=== PATIENT | male | born 1965 | race Caucasian/White ===

== ENCOUNTER 2017-06-25 18:25 | Emergency (ER) | payer OTHER ==
--- NOTE | 2017-06-25 19:45 | EDM.PDOC ---
ED HPI GENERAL MEDICAL PROBLEM - General Chief Complaint: Upper Extremity Injury/Pain Stated Complaint: HURT RIGHT WRIST Time Seen by Provider: 06/25/17 19:27 - History of Present Illness INITIAL COMMENTS - FREE TEXT/NARRATIVE: HISTORY AND PHYSICAL: History of present illness: The patient is a 51-year-old male who presents with right wrist and hand pain after he slipped and fell on the area about 10:00 this morning. He took 3 aspirin for the pain but the swelling and pain has been persistent and he is here for evaluation. When he fell he did not pass out or black out and he did not hit his head and has no head neck or back pain. Patient is right-hand dominant. Patient denies any other extremity complaints and has no proximal elbow humerus shoulder pain. He has no neurosensory changes in his hand but he says that there is discomfort when he moves the hand or the wrist. Review of systems: As per history of present illness and below otherwise all systems reviewed and negative. Past medical history: As per history of present illness and as reviewed below otherwise noncontributory. Surgical history: As per history of present illness and as reviewed below otherwise noncontributory. Social history: No reported history of drug or alcohol abuse. Family history: As per history of present illness and as reviewed below otherwise noncontributory. Physical exam: Gen.: Well-developed well-nourished man who is nontoxic and speaking clearly in the ED. Vital signs of the note by me HEENT: Atraumatic, normocephalic, negative for conjunctival pallor or scleral icterus, mucous membranes moist, throat clear, neck supple, nontender, trachea midline. Lungs: Clear to auscultation, breath sounds equal bilaterally, chest nontender. Heart: S1S2, regular rate and rhythm no overt murmurs Abdomen: Soft, nondistended, nontender. NABS Pelvis: Stable nontender. No lateral hip tenderness Genitourinary: Deferred. Rectal: Deferred. Extremities: Atraumatic with full range of motion of all extremities with the exception of the right wrist and hand where there is circumferential soft tissue swelling of the wrist and tenderness extending into the proximal Of the dorsal hand. The fingers are intact with full range of motion without defects or deficits and there is no proximal forearm elbow humerus or shoulder tenderness defects or deformities. Pulses are intact in the wrist and Refill is good. The legs are, negative for cords or calf pain. Neurovascular unremarkable. Neuro: Awake, alert, oriented. Cranial nerves II through XII unremarkable. Cerebellum unremarkable. Motor and sensory unremarkable throughout. Exam nonfocal. Back: There are no midline step-offs tenderness defects of the thoracic or lumbar spine and no posterior rib tenderness Diagnostics: X-ray right wrist and hand Therapeutics: Velcro wrist splint Impression: Right wrist injury/wrist sprain/hand contusion Definitive disposition and diagnosis as appropriate pending reevaluation and review of above. right wrist Pain Score (Numeric/FACES): 5 - Related Data Allergies Allergy/AdvReac Type Severity Reaction Status Date / Time No Known Allergies Allergy Verified 06/25/17 19:15 Home Meds: Home Meds . [No Known Home Meds] 06/25/17 [History] Past Medical History - Past Health History Medical/Surgical History: Denies Medical/Surgical History - Past Surgical History Musculoskeletal Surgical History: Reports: Other (See Below) Other Musculoskeletal Surgeries/Procedures:: left leg sx Social & Family History - Family History Family Medical History: Noncontributory - Tobacco Use Smoking Status *Q: Current Every Day Smoker Years of Tobacco use: 32 Packs/Tins Daily: 1 - Recreational Drug Use Recreational Drug Use: No Review of Systems - Review of Systems Review Of Systems: ROS reveals no pertinent complaints other than HPI. ED EXAM, GENERAL - Physical Exam Exam: See Below (See dictation) Course - Vital Signs Last Recorded V/S: Last Vital Signs Temp 36.8 C 06/25/17 19:00 Pulse 82 06/25/17 19:00 Resp 18 06/25/17 19:00 BP 160/80 H 06/25/17 19:00 Pulse Ox 94 L 06/25/17 19:00 - Orders/Labs/Meds Orders: Active Orders 24 hr Category Date Time Status Hand 2V Rt [CR] Stat Exams 06/25/17 19:34 Taken Wrist Comp Min 3V Rt [CR] Stat Exams 06/25/17 19:34 Taken DME for Discharge [COMM] Stat Oth 06/25/17 20:26 Ordered Departure - Departure Time of Disposition: 20:26 Disposition: Home, Self-Care 01 Condition: Good Clinical Impression: Right wrist sprain Qualifiers: Encounter type: initial encounter Qualified Code(s): S63.501A - Unspecified sprain of right wrist, initial encounter Contusion of wrist, right Qualifiers: Encounter type: initial encounter Qualified Code(s): S60.211A - Contusion of right wrist, initial encounter - Discharge Information Referrals: PCP,None [Primary Care Provider] - Forms: ED Department Discharge Additional Instructions: The following information is given to patients seen in the emergency department who are being discharged to home. This information is to outline your options for follow-up care. We provide all patients seen in our emergency department with a follow-up referral. The need for follow-up, as well as the timing and circumstances, are variable depending upon the specifics of your emergency department visit. If you don't have a primary care physician on staff, we will provide you with a referral. We always advise you to contact your personal physician following an emergency department visit to inform them of the circumstance of the visit and for follow-up with them and/or the need for any referrals to a consulting specialist. The emergency department will also refer you to a specialist when appropriate. This referral assures that you have the opportunity for followup care with a specialist. All of these measure are taken in an effort to provide you with optimal care, which includes your followup. Under all circumstances we always encourage you to contact your private physician who remains a resource for coordinating your care. When calling for followup care, please make the office aware that this follow-up is from your recent emergency room visit. If for any reason you are refused follow-up, please contact the [facility] emergency department at and ask to speak to the emergency department charge nurse. [facility]--Orthopedic clinic Professional [address] [address] Use of Velcro splint you have been given at all times and loosen or remove at sleep times. Ice and elevate the area and use [id number] ibuprofen/Motrin or Tylenol for pain. Please call and follow-up in orthopedics clinic next week for further care and evaluation and return to ER as needed and as discussed - My Orders Last 24 Hours: My Active Orders 06/25/17 19:34 Hand 2V Rt [CR] Stat Wrist Comp Min 3V Rt [CR] Stat 06/25/17 20:26 DME for Discharge [COMM] Stat - Assessment/Plan Last 24 Hours: My Active Orders 06/25/17 19:34 Hand 2V Rt [CR] Stat Wrist Comp Min 3V Rt [CR] Stat 06/25/17 20:26 DME for Discharge [COMM] Stat
--- NOTE | 2017-06-28 15:14 | CR ---
EXAM DATE: 06/25/17 PATIENT'S AGE: 51 Patient: RACHANA FENG Facility: [place], [place] Site . Site : 1965 Study: XRay Extremity Right wrist [id number]/12/2018 7:56:29 PM Ordering Physician: Richard Guerin Final Report: Indication: Injury and pain Technique: Right wrist 3 view Comparison: None Findings: Bones: Alignment is normal. No fractures or bone lesions. Joint spaces: Unremarkable. Soft tissues: Unremarkable. Impression: No sign of acute injury in the right wrist. Dictated by Mason Palmer MD @ 06/25/2017 8:15:45 PM Dictated by: Mason Palmer MD @ 06/25/2017 20:15:55 (Electronic Signature) Report Signed by Proxy. [facility]ITALJeffrey
--- NOTE | 2017-06-28 15:15 | CR ---
EXAM DATE: 06/25/17 PATIENT'S AGE: 51 Patient: RACHANA FENG Facility: [place], [place] Site . Site : 1965 Study: XRay Extremity Right hand [id number]/12/2018 7:56:50 PM Ordering Physician: Richard Guerin Final Report: Indication: Injury and pain Technique: Right hand 2 views Comparison: None Findings: Bones: Alignment is normal. No fractures or bone lesions. Joint spaces: Unremarkable. Soft tissues: Unremarkable. Impression: No sign of acute injury. Dictated by Mason Palmer MD @ 06/25/2017 8:17:20 PM Dictated by: Mason Palmer MD @ 06/25/2017 20:17:24 (Electronic Signature) Report Signed by Proxy. [facility]
== END 2017-06-25 20:39 | disposition home or self-care (01) ==
LOC: MW.ED 18:25
DX: S63.501A Unspecified sprain of right wrist, initial encounter (principal); S60.211A Contusion of right wrist, initial encounter; F17.210 Nicotine dependence, cigarettes, uncomplicated; W01.0XXA Fall on same level from slipping, tripping and stumbling without subsequent striking against object, initial encounter
CPT/HCPCS: 73110-26-RT; 73110-RT; 73120-26-RT; 73120-RT; 99283; 99284

== ENCOUNTER 2021-10-13 09:25 | Emergency (ER) | payer OTHER ==
[2021-10-13] MEDS ORDERED: Sodium Chloride 0.9% 1,000 ML IV ONE (09:48)
[2021-10-13] MEDS ORDERED: Ondansetron 4 MG/2 ML SDV IVPUSH ONE (10:24)
[2021-10-13 11:06] LABS: BLOOD UREA NITROGEN,BUN 18 mg/dL (7.0-18.0); CARBON DIOXIDE,CO2 20.7 mmol/L (21.0-32.0); CHLORIDE,CL 99 mmol/L (98-107); GLUCOSE RANDOM 99 mg/dL (74-106); POTASSIUM,K 3.5 mmol/L (3.5-5.1); SODIUM,NA 136 mmol/L (136-148)
[2021-10-13 11:07] LABS: CORONAVIRUS COVID-19 NAA NEGATIVE (NEGATIVE); INFLUENZA A NAA NEGATIVE (NEGATIVE); INFLUENZA B NAA NEGATIVE (NEGATIVE)
[2021-10-13] MEDS ORDERED: Iopamidol 755 MG/ML 500 ML Multipack Bottle IVPUSH STA (11:57)
== END 2021-10-13 14:01 | disposition home or self-care (01) ==
LOC: MW.ED 09:25
DX: K52.9 Noninfective gastroenteritis and colitis, unspecified (principal); Z20.822 Contact with and (suspected) exposure to COVID-19
CPT/HCPCS: 0240U; 36415; 74177; 80053; 81001; 83735; 85025; 87045; 87046; 87086; 87324; 87328; 87329; 87449; 87899; 96374; 99284; J2405; J7030; Q9967

== ENCOUNTER 2021-11-10 07:32 | Emergency (ER) | payer OTHER ==
[2021-11-10] MEDS ORDERED: Sodium Chloride 0.9% 1,000 ML IV ONE (07:47)
[2021-11-10] MEDS ORDERED: Vancomycin 125 MG Cap PO STA ×2 (08:14→10:18)
[2021-11-10 08:50] LABS: BLOOD UREA NITROGEN,BUN 11 mg/dL (7.0-18.0); CARBON DIOXIDE,CO2 26.4 mmol/L (21.0-32.0); CHLORIDE,CL 103 mmol/L (98-107); GLUCOSE RANDOM 116 mg/dL (74-106); LIPASE 79 U/L (73-393); POTASSIUM,K 3.9 mmol/L (3.5-5.1); SODIUM,NA 139 mmol/L (136-148)
[2021-11-10] MEDS ORDERED: Iopamidol 755 MG/ML 500 ML Multipack Bottle IVPUSH STA (09:32)
== END 2021-11-10 10:36 | disposition home or self-care (01) ==
LOC: MW.ED 07:32
DX: A04.72 Enterocolitis due to Clostridium difficile, not specified as recurrent (principal)
CPT/HCPCS: 36415; 74177; 80053; 83690; 83735; 85025; 87324; 96360; 99284; A9270; J7030; Q9967

== ENCOUNTER 2022-11-13 12:33 | Emergency (ER) | payer OTHER ==
[2022-11-13] MEDS ORDERED: traMADol 50 MG Tab PO STA (13:45)
== END 2022-11-13 14:36 | disposition home or self-care (01) ==
LOC: MW.ED 12:33
DX: G89.29 Other chronic pain (principal); M54.2 Cervicalgia; Z76.0 Encounter for issue of repeat prescription
CPT/HCPCS: 99281; A9270

== ENCOUNTER 2023-07-24 23:14 | Emergency (ER) | payer OTHER ==
[2023-07-25] MEDS: Ibuprofen 800 MG Tab PO ONE (00:23)
[2023-07-25] MEDS: Penicillin V Potassium 500 MG Tab PO STA (00:23)
== END 2023-07-25 00:28 | disposition home or self-care (01) ==
LOC: MW.ED 23:14
DX: K02.9 Dental caries, unspecified (principal)
CPT/HCPCS: 99282; A9270; 99283